=== PATIENT | male | born 1980 | race Caucasian/White ===

== ENCOUNTER 2019-04-04 09:13 | Emergency (ER) | payer OTHER ==
[~2019-04-04] VITALS: Ht 180.3 cm; Wt 119.1 kg
[2019-04-04 12:19] VITALS: BP 130/84
== END 2019-04-04 13:39 | disposition home or self-care (01) ==
LOC: EMS 09:15
DX: J40 Bronchitis, not specified as acute or chronic (principal); F12.90 Cannabis use, unspecified, uncomplicated; Z98.890 Other specified postprocedural states

== ENCOUNTER 2020-12-25 00:36 | Emergency (ER) | payer OTHER ==
[~2020-12-25] VITALS: Ht 177.8 cm; Wt 129.6 kg
[2020-12-25 01:30] VITALS: BP 132/81
== END 2020-12-25 01:37 | disposition home or self-care (01) ==
LOC: EMS 00:37
DX: L02.414 Cutaneous abscess of left upper limb (principal)
CPT/HCPCS: 99283; Z7502

== ENCOUNTER 2021-10-01 22:27 | Emergency (ER) | payer OTHER ==
[~2021-10-01] VITALS: Ht 177.8 cm; Wt 134.1 kg
[2021-10-01 22:45] VITALS: BP 127/76
[2021-10-01] MEDS ORDERED: PROPARACAINE HCL 0.5% 15 ML OPHTHALMIC SOLUTION OS ONE (23:45)
[2021-10-01] MEDS ORDERED: FLUORESCEIN SODIUM 1 MG STRIP OS ONE (23:45)
[2021-10-02] MEDS ORDERED: CIPR2.5D17 OD (00:53)
== END 2021-10-02 02:16 | disposition home or self-care (01) ==
LOC: EMS 22:27
DX: S05.01XA Injury of conjunctiva and corneal abrasion without foreign body, right eye, initial encounter (principal); F17.200 Nicotine dependence, unspecified, uncomplicated; F12.90 Cannabis use, unspecified, uncomplicated; W22.8XXA Striking against or struck by other objects, initial encounter; Y93.89 Activity, other specified; Y92.89 Other specified places as the place of occurrence of the external cause; Y99.0 Civilian activity done for income or pay
CPT/HCPCS: 99283

== ENCOUNTER 2022-08-29 14:48 | Emergency (ER) | payer OTHER ==
[~2022-08-29] VITALS: Ht 180.3 cm; Wt 118.2 kg
[~2022-08-29 14:48] MED LIST: CIPR2.5D17 OD
[2022-08-29] MEDS ORDERED: ACET-66 PO (15:37)
[2022-08-29] MEDS ORDERED: METH-812 PO (15:37)
[2022-08-29] MEDS ORDERED: IBUP-1554 PO (15:37)
[2022-08-29] MEDS ORDERED: METHOCARBAMOL 500 MG TABLET PO ONE (15:45)
[2022-08-29] MEDS ORDERED: IBUPROFEN 600 MG TABLET PO ONE (15:45)
[2022-08-29] MEDS ORDERED: ACETAMINOPHEN 500 MG TABLET PO ONE (15:45)
[2022-08-29 19:59] VITALS: BP 136/71
== END 2022-08-29 20:01 | disposition home or self-care (01) ==
LOC: EMS 14:53
DX: S39.012A Strain of muscle, fascia and tendon of lower back, initial encounter (principal); F12.90 Cannabis use, unspecified, uncomplicated; Z98.890 Other specified postprocedural states; V98.8XXA Other specified transport accidents, initial encounter; Y93.89 Activity, other specified; Y92.89 Other specified places as the place of occurrence of the external cause; Y99.8 Other external cause status
CPT/HCPCS: 72070; 72100; 99284; Z7502; Z7610